=== PATIENT | female | born 1970 | race Caucasian/White ===

== ENCOUNTER 2020-08-27 13:10 | Day surgery (SDCO) | payer OTHER ==
[~2020-08-27 13:10] MED LIST: ACTOS15 MG PO; ASPIRIN CHEWABL81 MG PO; BASAGLAR K100 UNIT/1 SC; BRILINTA90 MG PO; CRESTOR40 MG PO; EFFEXOR XR75 MG PO; GLUCOPHAGE1000 MG PO; GLUCOTROL10 MG PO; IMDUR 30MG TABL30 MG PO; ISOSORBIDE MONO60 M1 PO; LOPRESSOR50 MG PO; NITROQUIK SL0.4 MG SL; PEPCID AC20 MG PO; PHENERGAN25 M1 PO; PROTONIX 40MG T40 MG PO; RANEXA500 MG PO; REQUIP0.25 MG PO; TOPAMAX50 MG PO; TOPROL XL50 MG PO; VICTOZA 2-0.6 MG/0.1 SC; WELLBUTRIN XL150 MG PO; XANAX0.5 MG PO; ZESTRIL2.5 MG PO; ZESTRIL5 MG PO
[2020-08-27 13:44] LABS: BASOPHIL 0.4 % (0-2); HCT 38.7 % (37.0-47.0); HGB 12.5 g/dl (12.5-16.0); LYMPHOCYTE 35.1 % (15-48); MCH 29.3 pg (25.0-31.0); MCHC 32.3 g/dL (32.0-36.0); MCV 90.6 fL (78.0-100.0); MONOCYTE 8.6 % (0-12); MPV 9.9 fL (6.0-9.5); NEUTROPHIL 53.8 % (41-80); NRBC 0; PLT 297 K/uL (150-400); RBC 4.27 M/uL (4.20-5.40); RDW 13.2 % (11.5-14.0); WBC 5.2 K/uL (4.0-10.5)
[2020-08-27 13:58] LABS: INR 1.02 (0.9-1.2); PROTHROMBIN TIME 12.7 SECONDS (11.4-13.6); PTT 26.9 SECONDS (22.2-34.7)
[2020-08-27 14:05] LABS: ALBUMIN 3.4 g/dL (3.4-5.0); BILIRUBIN - TOTAL 0.2 mg/dL (0.2-1.0); BUN/CREAT RATIO (CALC) 16.3 RATIO; CREATININE 1.04 mg/dL (0.51-0.95); GLOBULIN (CALCULATION) 3.4 g/dL; POTASSIUM 3.9 mmol/L (3.5-5.1); TOTAL PROTEIN 6.8 g/dL (6.4-8.2)
[2020-08-27] MEDS ORDERED: OZEMPIC0.25 MG/0. SC (22:23)
[2020-08-27] MEDS ORDERED: LANTUS **100 UNITS/ SC (22:24)
[2020-08-27] MEDS ORDERED: TRAZODONE 50MG50 MG PO (22:25)
[2020-08-27] MEDS ORDERED: CYMBALTA 30MG C30 MG PO (22:25)
[2020-08-27] MEDS ORDERED: JARDIANCE10 MG PO (22:26)
[2020-08-27] MEDS ORDERED: HUMALOG 75100 UNIT/M SC (22:28)
[2020-08-28 05:09] LABS: BASOPHIL 0.5 % (0-2); EOSINOPHIL 2.1 % (0-5); HCT 37.9 % (37.0-47.0); HGB 12.1 g/dl (12.5-16.0); LYMPHOCYTE 42.5 % (15-48); MCH 28.8 pg (25.0-31.0); MCHC 31.9 g/dL (32.0-36.0); MCV 90.2 fL (78.0-100.0); MONOCYTE 10.5 % (0-12); MPV 9.7 fL (6.0-9.5); NEUTROPHIL 44.2 % (41-80); NRBC 0; PLT 256 K/uL (150-400); RDW 13.2 % (11.5-14.0); WBC 4.4 K/uL (4.0-10.5)
[2020-08-28 05:41] LABS: PRO-BNP 412 pg/mL (<125)
[2020-08-28] MEDS ORDERED: ISOSORBIDE MONO60 M1 PO (11:19)
== END 2020-08-28 13:42 | disposition home or self-care (01) ==
LOC: FER 13:10 → FTCU 18:29
PROVIDERS: Emergency Medicine; ADMIT Internal Medicine
DX: I25.110 Atherosclerotic heart disease of native coronary artery with unstable angina pectoris (principal); I10 Essential (primary) hypertension; K21.9 Gastro-esophageal reflux disease without esophagitis; E11.9 Type 2 diabetes mellitus without complications; E78.5 Hyperlipidemia, unspecified; E78.00 Pure hypercholesterolemia, unspecified; G47.33 Obstructive sleep apnea (adult) (pediatric); U07.1 COVID-19; Z86.59 Personal history of other mental and behavioral disorders; Z82.3 Family history of stroke; Z79.899 Other long term (current) drug therapy; Z90.49 Acquired absence of other specified parts of digestive tract; Z98.61 Coronary angioplasty status; Z79.4 Long term (current) use of insulin; Z90.710 Acquired absence of both cervix and uterus; Z88.8 Allergy status to other drugs, medicaments and biological substances
CPT/HCPCS: 36415; 71045; 80053; 83735; 83880; 84484; 85025; 85610; 85730; 93005; 94010; G0378; J2270; J2405; U0002

== ENCOUNTER 2021-04-07 01:20 | Emergency (ER) | payer OTHER ==
[~2021-04-07 01:20] MED LIST changes: +CYMBALTA 30MG C30 MG PO; +HUMALOG 75100 UNIT/M SC; +JARDIANCE10 MG PO; +LANTUS **100 UNITS/ SC; +OZEMPIC0.25 MG/0. SC; +TRAZODONE 50MG50 MG PO
[2021-04-07 01:43] LABS: BASOPHIL 0.6 % (0-2); EOSINOPHIL 1.8 % (0-5); HCT 41.6 % (37.0-47.0); HGB 14.1 g/dl (12.5-16.0); LYMPHOCYTE 38.2 % (15-48); MCH 29.7 pg (25.0-31.0); MCHC 33.9 g/dL (32.0-36.0); MCV 87.6 fL (78.0-100.0); MONOCYTE 9.4 % (0-12); MPV 9.6 fL (6.0-9.5); NEUTROPHIL 49.6 % (41-80); NRBC 0; PLT 331 K/uL (150-400); RBC 4.75 M/uL (4.20-5.40); RDW 12.5 % (11.5-14.0); WBC 8.9 K/uL (4.0-10.5)
[2021-04-07 01:47] LABS: INR 0.87 (0.9-1.2); PROTHROMBIN TIME 11.3 SECONDS (11.8-13.4)
[2021-04-07 02:03] LABS: ALBUMIN 3.4 g/dL (3.4-5.0); ALKALINE PHOSHATASE 228 U/L (46-116); ALT 15 U/L (14-59); AST <5 U/L (15-37); BILIRUBIN - TOTAL 0.2 mg/dL (0.2-1.0); BUN 21 mg/dL (7-18); BUN/CREAT RATIO (CALC) 36.8 RATIO; CHLORIDE 95 mmol/L (98-107); CO2 (BICARBONATE) 25 mmol/L (21-32); CREATININE 0.57 mg/dL (0.51-0.95); POTASSIUM 4.3 mmol/L (3.5-5.1); TOTAL PROTEIN 7.4 g/dL (6.4-8.2)
[2021-04-07 02:04] LABS: GLUCOSE 655 mg/dL (74-106)
[2021-04-07] MEDS ORDERED: LANTUS **100 UNITS/ SC (06:10)
[2021-04-07] MEDS ORDERED: JARDIANCE10 MG PO (06:10)
[2021-04-07] MEDS ORDERED: ISOSORBIDE MONO60 MG PO (06:10)
[2021-04-07] MEDS ORDERED: OZEMPIC0.25 MG/0. IM (06:10)
[2021-04-07] MEDS ORDERED: REQUIP0.25 MG PO (06:10)
[2021-04-07] MEDS ORDERED: TOPROL XL50 MG PO (06:10)
[2021-04-07] MEDS ORDERED: BRILINTA60 MG PO (06:10)
[2021-04-07] MEDS ORDERED: ZESTRIL5 MG PO (06:10)
[2021-04-07] MEDS ORDERED: HUMALOG 75100 UNIT/M SC (06:10)
[2021-04-07] MEDS ORDERED: NITROQUIK SL0.4 MG SL (06:10)
[2021-04-07] MEDS ORDERED: PROTONIX 40MG T40 MG PO (06:10)
== END 2021-04-07 06:25 | disposition home or self-care (01) ==
LOC: FER 01:20
PROVIDERS: Emergency Medicine Emergency Medical Services
DX: R07.89 Other chest pain (principal); E11.65 Type 2 diabetes mellitus with hyperglycemia; I10 Essential (primary) hypertension; I25.10 Atherosclerotic heart disease of native coronary artery without angina pectoris; Z20.822 Contact with and (suspected) exposure to COVID-19
CPT/HCPCS: 36415; 71045; 80053; 84484; 85025; 85610; 85730; 93005; J2270; J2405; U0002